=== PATIENT | female | born 1955 | race African-American/Black ===

== ENCOUNTER 2018-09-04 05:46 | Inpatient (IN) | payer MEDICAID ==
[~2018-09-04] VITALS: Ht 160 cm; Wt 79.8 kg
[2018-09-04] VITALS (35 sets, daily range): BP systolic 92–157; BP diastolic 57–84
[~2018-09-04 05:46] MED LIST: AMLO10TA80 PO; ASPI-1159 PO; BRIM5DRO EACHEYE; CHLO25TA2 PO; CYAN100069 PO; DORZ10DR9 BOTHEYE; ESOM40CA PO; GABA-290 PO; LATA2.5D2 BOTHEYE; LOSA25TA12 PO; MEGE40TA27 PO; RIVA20TA PO; SOTA80TA PO
[2018-09-04] MEDS ORDERED: LACTATED RINGERS 1,000 ML IV SCH (08:00)
[2018-09-04] MEDS ORDERED: AMLO5TAB88 PO (09:20)
[2018-09-04] MEDS ORDERED: GELATIN SPONGE,ABSORBABLE 12-7MM SPONGE ONE (09:30)
[2018-09-04] MEDS ORDERED: THROMBIN (BOVINE) 5000 UNITS/VIAL TOP ONE (09:30)
[2018-09-04] MEDS ORDERED: LIDOCAINE HCL/EPINEPHRINE 1%-EPI 1:100,000 20 ML VIAL ONE (09:31)
[2018-09-04] MEDS ORDERED: BACITRACIN 50,000 UNITS/VIAL ONE (09:31)
[2018-09-04] MEDS ORDERED: HYDR-4009 PO (09:52)
[2018-09-04] MEDS ORDERED: FENTANYL CITRATE/PF 50MCG/ML 5ML VIAL ONE (12:02)
[2018-09-04] MEDS ORDERED: ROCURONIUM BROMIDE 10MG/ML VIAL 5ML IV ONE (12:02)
[2018-09-04] MEDS ORDERED: MIDAZOLAM HCL 2 MG/2 ML VIAL ONE (12:02)
[2018-09-04] MEDS ORDERED: HYDROMORPHONE HCL/PF 2MG/ML (OR) ONE (12:02)
[2018-09-04] MEDS ORDERED: PROPOFOL 200MG/20ML VIAL IV ONE (12:02)
[2018-09-04] MEDS ORDERED: CLINDAMYCIN 900 MG in DEXTROSE 5% WATER 50 ML IV ONE (12:15)
[2018-09-04] MEDS ORDERED: NICARDIPINE 100 MG in SODIUM CHLORIDE 0.9% 60 ML IV PRN (12:30)
[2018-09-04] MEDS ORDERED: HYDROCODONE/APAP 7.5/325MG 1 TAB TABLET PO PRN (12:30)
[2018-09-04] MEDS ORDERED: PHENYLEPHRINE HCL 10 MG/ML 1ML (IV VIAL) IV ONE (12:33)
[2018-09-04] MEDS ORDERED: NITROPRUSSIDE 50 MG in SODIUM CHLORIDE 0.9% 250 ML IV PRN (12:45)
[2018-09-04] MEDS ORDERED: LIDOCAINE HCL/PF 1% 10 MG/ML 5ML VIAL ONE (13:26)
[2018-09-04] MEDS ORDERED: GLYCOPYRROLATE 0.2 MG/ML 2ML VIAL ONE ×2 (13:26→13:40)
[2018-09-04] MEDS ORDERED: ONDANSETRON HCL 4MG/2ML INJ IV PRN (14:00)
[2018-09-04] MEDS ORDERED: HYDROMORPHONE PCA 10MG/50ML IV PRN (14:45)
[2018-09-04] MEDS ORDERED: DIPHENHYDRAMINE INJ IV PRN (14:45)
[2018-09-04] MEDS ORDERED: NALOXONE INJ IV PRN (14:45)
[2018-09-04] MEDS ORDERED: ONDANSETRON INJ IV PRN (14:45)
[2018-09-04] MEDS: DEXT 5%/LACTATED RINGERS 1,000 ML IV SCH ×2 (14:59→22:26)
[2018-09-04] MEDS: DEXAMETHASONE 4MG/ML 1ML VIAL IV SCH (18:14)
[2018-09-04] MEDS ORDERED: BISACODYL 5MG TABLET PO PRN (19:15)
[2018-09-04] MEDS: CLINDAMYCIN 600 MG in DEXTROSE 5% WATER 50 ML IV SCH (22:27)
[2018-09-05] VITALS (26 sets, daily range): BP systolic 93–136; BP diastolic 53–94
[2018-09-05] MEDS: DEXAMETHASONE 4MG/ML 1ML VIAL IV SCH ×2 (00:17→05:12)
[2018-09-05] MEDS: IPRATROPIUM/ALBUTEROL 0.5-3(2.5)MG/3ML NEB INH PRN ×2 (00:20→09:09)
[2018-09-05] MEDS: CLINDAMYCIN 600 MG in DEXTROSE 5% WATER 50 ML IV SCH (05:12)
[2018-09-05] MEDS: DEXT 5%/LACTATED RINGERS 1,000 ML IV SCH (05:13)
[2018-09-05 05:33] LABS: BASOPHILS % 0.1 % (0.0-2.0); HEMOGLOBIN. 11.9 g/dL (12.0-16.0); LYMPHOCYTES % 9.9 % (20.0-50.0); MEAN CORPUSCULAR HEMOGLOBIN 29.5 pg (28.0-32.0); MEAN CORPUSCULAR VOLUME 89.1 fL (81.0-99.0); MONOCYTES % 1.5 % (2.0-8.0); NEUTROPHILS % 88.5 % (40.0-76.0); PLATELET 213 x1000/uL (130-400); RED BLOOD CELL COUNT 4.04 mill/uL (4.2-5.4); RED CELL DISTRIBUTION WIDTH 15.3 % (11.6-14.6)
[2018-09-05 05:40] LABS: CHLORIDE 102 mEq/L (98-107)
[2018-09-05 05:52] LABS: LDL CHOLESTEROL 86 mg/dL (5-100)
[2018-09-05 05:54] LABS: HDL CHOLESTEROL 49 mg/dL (40-59)
[2018-09-05] MEDS: ONDANSETRON HCL 4MG/2ML INJ IV PRN (10:38)
[2018-09-05] MEDS: DOCUSATE SODIUM 100MG CAPSULE PO SCH ×2 (10:38→18:09)
[2018-09-06] VITALS: BP 114/73
[2018-09-06 02:06] VITALS: BP 153/78
[2018-09-06 04:00] VITALS: BP 125/85
[2018-09-06 08:00] VITALS: BP 140/80
[2018-09-06] MEDS: DOCUSATE SODIUM 100MG CAPSULE PO SCH (09:12)
[2018-09-06] MEDS: ONDANSETRON HCL 4MG/2ML INJ IV PRN (10:23)
[2018-09-06 12:00] VITALS: BP 148/82
[2018-09-06 13:48] VITALS: BP 148/82
== END 2018-09-06 14:30 | disposition home or self-care (01) | DRG 321 ==
LOC: OR 05:46 → MICUNO 05:47 → 6EST 09-05 11:30
PROVIDERS: ADMIT Neurological Surgery; ATTEND Neurological Surgery
PROC: 0RG10A0 Fusion of Cervical Vertebral Joint with Interbody Fusion Device, Anterior Approach, Anterior Column, Open Approach (ICD-10-PCS; principal; 2018-09-04)
PROC: 0RB30ZZ Excision of Cervical Vertebral Disc, Open Approach (ICD-10-PCS; 2018-09-04)
DX: M47.12 Other spondylosis with myelopathy, cervical region (principal); G82.50 Quadriplegia, unspecified; M50.022 Cervical disc disorder at C5-C6 level with myelopathy; I10 Essential (primary) hypertension; I48.0 Paroxysmal atrial fibrillation; G95.20 Unspecified cord compression; M54.12 Radiculopathy, cervical region; M48.02 Spinal stenosis, cervical region; Z88.0 Allergy status to penicillin
CPT/HCPCS: 36415; 71045; 72040; 80061; 84443; 86850; 86900; 88304; 88311; 93970; 95925; 95926; 95928; 97116; 97163; 97166; 97535; C1713; J1100; J1170; J2250; J2370; J2405; J2704; J3010; J3490; J7060; J7121; J7620; L0172

== ENCOUNTER 2018-10-05 10:19 | Inpatient (IN) | payer MEDICAID ==
[~2018-10-05] VITALS: Ht 177.8 cm; Wt 70.3 kg
[~2018-10-05 10:19] MED LIST changes: -AMLO10TA80 PO; +AMLO5TAB88 PO; -ASPI-1159 PO; -BRIM5DRO EACHEYE; -DORZ10DR9 BOTHEYE; -GABA-290 PO; +HYDR-4009 PO; -MEGE40TA27 PO
[2018-10-05] MEDS ORDERED: ASPIRIN 81MG TABLET PO ONE (10:30)
[2018-10-05] MEDS ORDERED: DILTIAZEM HCL 5MG/ML 5ML VIAL IV ONE (10:30)
[2018-10-05 11:07] LABS: BASOPHILS % 1.1 % (0.0-2.0); EOSINOPHILS % 1.1 % (0.0-5.0); HEMATOCRIT. 40.1 % (36.0-48.0); HEMOGLOBIN. 14.1 g/dL (12.0-16.0); LYMPHOCYTES % 61.1 % (20.0-50.0); MEAN CORPUSCULAR HEMOGLOBIN 30.2 pg (28.0-32.0); MEAN CORPUSCULAR VOLUME 86.1 fL (81.0-99.0); MEAN PLATELET VOLUME 7.5 fl (7.4-10.4); MONOCYTES % 13.2 % (2.0-8.0); NEUTROPHILS % 23.5 % (40.0-76.0); PLATELET 198 x1000/uL (130-400); RED BLOOD CELL COUNT 4.66 mill/uL (4.2-5.4); RED CELL DISTRIBUTION WIDTH 13.9 % (11.6-14.6)
[2018-10-05 11:09] LABS: CHLORIDE 97 mEq/L (98-107)
[2018-10-05] MEDS ORDERED: POTASSIUM CHLORIDE 20MEQ TABLET SR PO NR ×2 (12:15→16:30)
[2018-10-05] MEDS ORDERED: KCL 20MEQ/100ML PREMIX 100 ML IV NR (12:30)
[2018-10-05] MEDS ORDERED: ACETAMINOPHEN 325MG TABLET PO PRN (13:00)
[2018-10-05 13:16] LABS: CLARITY URINE CLEAR (CLEAR); COLOR URINE YELLOW (YELLOW); KETONES URINE NEGATIVE (NEGATIVE); LEUKOCYTE ESTERASE URINE NEGATIVE (NEGATIVE); NITRITE URINE NEGATIVE (NEGATIVE); OCCULT BLOOD URINE 1+ (NEGATIVE); PROTEIN URINE NEGATIVE (NEGATIVE); SPECIFIC GRAVITY URINE 1.007 (1.005-1.030)
[2018-10-05 13:59] LABS: *AMPHETAMINES SCREEN URINE NEGATIVE (NEGATIVE)
[2018-10-05 14:00] LABS: *BARBITURATES SCREEN URINE NEGATIVE (NEGATIVE); *BENZODIAZEPINES SCREEN URINE NEGATIVE (NEGATIVE); *COCAINE SCREEN URINE NEGATIVE (NEGATIVE); METHADONE URINE SCREEN NEGATIVE (NEGATIVE); OPIATES URINE SCREEN NEGATIVE (NEGATIVE); PHENCYCLIDINE URINE SCREEN NEGATIVE (NEGATIVE)
[2018-10-05 14:01] LABS: CANNABINOID URINE SCREEN PRESUMTIVE POSITIVE (NEGATIVE)
[2018-10-05] MEDS ORDERED: ONDANSETRON HCL 4MG/2ML INJ IV PRN (16:30)
[2018-10-05] MEDS ORDERED: DILTIAZEM HCL 5MG/ML 5ML VIAL IV PRN (16:30)
[2018-10-05 16:48] VITALS: BP 109/79
[2018-10-05] MEDS ORDERED: PNEUMOCOCCAL 23-VAL P-SAC VAC 0.5 ML IM ONE ×2 (17:30→22:00)
[2018-10-05] MEDS: RIVAROXABAN 20 MG TABLET PO SCH (18:35)
[2018-10-05 20:00] VITALS: BP 112/80
[2018-10-06 00:02] VITALS: BP 100/60
[2018-10-06 04:00] VITALS: BP 100/62
[2018-10-06 06:47] LABS: BASOPHILS % 0.6 % (0.0-2.0); EOSINOPHILS % 6.7 % (0.0-5.0); HEMATOCRIT. 37.4 % (36.0-48.0); HEMOGLOBIN. 12.7 g/dL (12.0-16.0); MEAN CORPUSCULAR HEMOGLOBIN 29.6 pg (28.0-32.0); MEAN CORPUSCULAR VOLUME 86.9 fL (81.0-99.0); MEAN PLATELET VOLUME 7.9 fl (7.4-10.4); MONOCYTES % 14.3 % (2.0-8.0); NEUTROPHILS % 18.4 % (40.0-76.0); PLATELET 166 x1000/uL (130-400); RED CELL DISTRIBUTION WIDTH 14.1 % (11.6-14.6)
[2018-10-06 06:55] LABS: CHLORIDE 104 mEq/L (98-107)
[2018-10-06 07:56] VITALS: BP 106/77
[2018-10-06] MEDS ORDERED: POTASSIUM CHLORIDE 20MEQ TABLET SR PO SCH ×2 (09:15→15:15)
[2018-10-06] MEDS: DOCUSATE SODIUM 100MG CAPSULE PO SCH (09:54)
[2018-10-06] MEDS: HYDROCODONE/ACETAMINOPHEN 5/325MG TABLET PO PRN (09:54)
[2018-10-06 12:00] VITALS: BP 107/78
[2018-10-06] MEDS ORDERED: MORPHINE SULFATE 4 MG/ML CPJ (NOT FOR IM USE) IV PRN (15:00)
[2018-10-06 16:00] VITALS: BP 119/74
[2018-10-06] MEDS ORDERED: MAGNESIUM 2 G PREMIX 50 ML IV SCH (16:00)
[2018-10-06] MEDS: RIVAROXABAN 20 MG TABLET PO SCH (16:11)
[2018-10-06 20:00] VITALS: BP 102/74
[2018-10-06] MEDS: SOTALOL HCL 80MG TABLET PO SCH (20:22)
[2018-10-07] VITALS: BP 111/78
[2018-10-07 04:00] VITALS: BP 106/70
[2018-10-07 06:07] LABS: BASOPHILS % 1.3 % (0.0-2.0); EOSINOPHILS % 2.9 % (0.0-5.0); HEMATOCRIT. 37.8 % (36.0-48.0); HEMOGLOBIN. 12.7 g/dL (12.0-16.0); LYMPHOCYTES % 51.6 % (20.0-50.0); MEAN CORPUSCULAR HEMOGLOBIN 29.5 pg (28.0-32.0); MEAN CORPUSCULAR VOLUME 87.9 fL (81.0-99.0); MEAN PLATELET VOLUME 7.8 fl (7.4-10.4); MONOCYTES % 10.1 % (2.0-8.0); NEUTROPHILS % 34.1 % (40.0-76.0); PLATELET 161 x1000/uL (130-400)
[2018-10-07 07:27] LABS: CHLORIDE 102 mEq/L (98-107)
[2018-10-07 08:00] VITALS: BP 114/80
[2018-10-07] MEDS: DOCUSATE SODIUM 100MG CAPSULE PO SCH (08:55)
[2018-10-07] MEDS: HYDROCODONE/ACETAMINOPHEN 5/325MG TABLET PO PRN (08:55)
[2018-10-07] MEDS: SOTALOL HCL 80MG TABLET PO SCH (08:55)
[2018-10-07 12:00] VITALS: BP 111/74
[2018-10-07 15:38] VITALS: BP 111/74
[2018-10-07 16:00] VITALS: BP 112/80
== END 2018-10-07 17:15 | disposition home or self-care (01) | DRG 201 ==
LOC: ER 10:19 → EDBEDREQ 12:20 → 8WST 13:51 → ENRESERV 13:51
PROVIDERS: ADMIT Internal Medicine; ATTEND Internal Medicine
DX: I48.1 Persistent atrial fibrillation (principal); E87.1 Hypo-osmolality and hyponatremia; E87.6 Hypokalemia; F12.90 Cannabis use, unspecified, uncomplicated; I10 Essential (primary) hypertension; K21.9 Gastro-esophageal reflux disease without esophagitis; H40.9 Unspecified glaucoma; Z90.710 Acquired absence of both cervix and uterus; Z79.01 Long term (current) use of anticoagulants; Z79.899 Other long term (current) drug therapy; Z88.0 Allergy status to penicillin
CPT/HCPCS: 36415; 71045; 80048; 80061; 80305; 83036; 83735; 83880; 84443; 84484; 90732; 93005; 93306; 97162; 97166; 99285; J2270; J3475; J3480; J3490; J7050

== ENCOUNTER → 2019-06-10 | Day surgery (SDC) | payer MEDICAID ==
[~2019-06-10] MED LIST changes: +CHLO25TA2 MT; +DICL75TA5 MT; +FOLI-43 MT; -LOSA25TA12 PO; +LOSA25TA26 PO; +METH2.5T PO; +PRED5TAB MT
== END | disposition home or self-care (01) ==
LOC: CCL 08:48
PROVIDERS: ATTEND Internal Medicine Cardiovascular Disease
DX: I25.10 Atherosclerotic heart disease of native coronary artery without angina pectoris (principal); Z53.8 Procedure and treatment not carried out for other reasons; I48.91 Unspecified atrial fibrillation; R94.39 Abnormal result of other cardiovascular function study

== ENCOUNTER 2019-06-17 09:42 | Day surgery (SDC) | payer MEDICAID ==
[~2019-06-17] VITALS: Ht 165.1 cm; Wt 74.8 kg
[~2019-06-17 09:42] MED LIST changes: -CHLO25TA2 MT; -DICL75TA5 MT; -FOLI-43 MT; -METH2.5T PO; -PRED5TAB MT
[2019-06-17] MEDS ORDERED: NICARDIPINE 100MCG/ML 10ML VIAL (CATH LAB) IV ONE (10:14)
[2019-06-17] MEDS ORDERED: NITROGLYCERIN 50MCG/ML 10ML VIAL (CATH LAB) IV ONE (10:14)
[2019-06-17] MEDS ORDERED: HEPARIN SODIUM 1,000 UNIT/1ML VIAL IV ONE (10:14)
[2019-06-17] MEDS ORDERED: PRED5TAB MT (10:15)
[2019-06-17] MEDS ORDERED: CHLO25TA2 MT (10:15)
[2019-06-17] MEDS ORDERED: DICL75TA5 MT (10:15)
[2019-06-17] MEDS ORDERED: METH2.5T PO (10:15)
[2019-06-17] MEDS ORDERED: FOLI-43 MT (10:15)
[2019-06-17] MEDS ORDERED: MIDAZOLAM HCL 2 MG/2 ML VIAL ONE (10:32)
[2019-06-17] MEDS ORDERED: FENTANYL CITRATE/PF 50MCG/ML 2ML VIAL ONE (10:32)
[2019-06-17] MEDS ORDERED: IODIXANOL 320MG/ML 100 ML BOTTLE IV ONE (10:32)
[2019-06-17] MEDS ORDERED: LIDOCAINE HCL 1% 20ML VIAL (Pyxis) INJ ONE (10:33)
[2019-06-17 11:14] LABS: HEMATOCRIT 37.9 % (36.0-48.0); HEMOGLOBIN 12.7 g/dL (12.0-16.0); MEAN CORPUSCULAR HEMOGLOBIN 30.6 pg (28.0-32.0); PLATELET 237 x1000/uL (130-400); RED BLOOD CELL COUNT 4.16 mill/uL (4.2-5.4); RED CELL DISTRIBUTION WIDTH 15.8 % (11.6-14.6)
[2019-06-17 11:23] LABS: CHLORIDE 102 mEq/L (98-107)
[2019-06-17 11:29] LABS: INR 1.1; PARTIAL THROMBOPLASTIN TIME 28.2 sec (23.4-31.0); PROTHROMBIN TIME 11.2 sec (9.6-11.0)
[2019-06-17] MEDS ORDERED: ATORVASTATIN CALCIUM 20MG TABLET PO NR (12:00)
[2019-06-17] MEDS ORDERED: ONDANSETRON HCL 4MG/2ML INJ IV PRN (12:00)
[2019-06-17] MEDS ORDERED: POTASSIUM CHLORIDE 20MEQ TABLET SR PO NR (12:00)
[2019-06-17] MEDS ORDERED: MAGNESIUM OXIDE 400MG TABLET PO SCH (12:00)
[2019-06-17] MEDS ORDERED: ACETAMINOPHEN 325MG TABLET PO PRN (15:59)
[2019-06-17] MEDS ORDERED: MORPHINE SULFATE 2 MG/ML CPJ (NOT FOR IM USE) IV PRN (16:00)
== END 2019-06-17 15:30 | disposition home or self-care (01) ==
LOC: CCL 09:42
PROVIDERS: ATTEND Internal Medicine Cardiovascular Disease
DX: R94.39 Abnormal result of other cardiovascular function study (principal); I25.10 Atherosclerotic heart disease of native coronary artery without angina pectoris; I48.91 Unspecified atrial fibrillation; Z79.899 Other long term (current) drug therapy; Z88.0 Allergy status to penicillin; Z87.891 Personal history of nicotine dependence; Z82.49 Family history of ischemic heart disease and other diseases of the circulatory system
CPT/HCPCS: 36415; 80048; 85027; 85610; 85730; 93005; 93458; 99152; C1769; C1887; J1644; J2250; J3010; J3490; Q9967; G0500

== ENCOUNTER 2019-09-23 08:57 | Inpatient (IN) | payer MEDICAID ==
[~2019-09-23] VITALS: Ht 165.1 cm; Wt 71.7 kg
[~2019-09-23 08:57] MED LIST changes: +CHLO25TA2 MT; +DICL75TA5 MT; +FOLI-43 MT; +METH2.5T PO; +PRED5TAB MT
[2019-09-23] MEDS ORDERED: MELO-106 MT (10:07)
[2019-09-23] MEDS ORDERED: VALA500T55 PO (10:07)
[2019-09-23] MEDS ORDERED: B12/1TAB MT (10:07)
[2019-09-23] MEDS ORDERED: MEGE40TA8 MT (10:07)
[2019-09-23 10:22] LABS: HEMATOCRIT 37.9 % (36.0-48.0); HEMOGLOBIN 12.5 g/dL (12.0-16.0); MEAN CORPUSCULAR HEMOGLOBIN 30.3 pg (28.0-32.0); MEAN CORPUSCULAR VOLUME 91.9 fL (81.0-99.0); PLATELET 219 x1000/uL (130-400); RED BLOOD CELL COUNT 4.12 mill/uL (4.2-5.4)
[2019-09-23 10:29] LABS: CHLORIDE 109 mEq/L (98-107)
[2019-09-23 10:30] LABS: INR 1.1; PROTHROMBIN TIME 11.2 sec (9.6-11.0)
[2019-09-23] MEDS ORDERED: HEPARIN 1,000 UNITS PREMIX 1,500 ML IV ONE (12:09)
[2019-09-23] MEDS ORDERED: LIDOCAINE HCL 1% 20ML VIAL (Pyxis) INJ ONE ×2 (12:09→13:49)
[2019-09-23] MEDS ORDERED: FENTANYL CITRATE/PF 50MCG/ML 2ML VIAL ONE (13:45)
[2019-09-23] MEDS ORDERED: MIDAZOLAM HCL 2 MG/2 ML VIAL ONE (13:46)
[2019-09-23] MEDS ORDERED: SODIUM CHLORIDE 0.9% 10ML VIAL ONE ×2 (13:50→14:28)
[2019-09-23] MEDS ORDERED: SUCCINYLCHOLINE CHLORIDE 200MG/10ML IV ONE (13:50)
[2019-09-23] MEDS ORDERED: ETOMIDATE 2MG/ML 10ML VIAL IV ONE (13:50)
[2019-09-23] MEDS ORDERED: EPHEDRINE SULFATE 50MG/ML VIAL ONE ×2 (13:50→15:00)
[2019-09-23] MEDS ORDERED: PHENYLEPHRINE HCL 10 MG/ML 1ML (IV VIAL) IV ONE (13:50)
[2019-09-23] MEDS ORDERED: ROCURONIUM BROMIDE 10MG/ML VIAL 5ML IV ONE (14:00)
[2019-09-23] MEDS ORDERED: GLYCOPYRROLATE 0.2 MG/ML 2ML VIAL ONE (14:01)
[2019-09-23] MEDS ORDERED: DEXAMETHASONE 4MG/ML 1ML VIAL ONE (14:34)
[2019-09-23] MEDS ORDERED: ONDANSETRON HCL 4MG/2ML INJ ONE (17:49)
[2019-09-23] MEDS ORDERED: IBUTILIDE FUMARATE 0.1MG/ML 10ML VIAL IV ONE (17:54)
[2019-09-23] MEDS ORDERED: AMIODARONE HCL 150 MG in DEXT 5% WATER 100 ML IV NR ×2 (18:15→19:00)
[2019-09-23] MEDS ORDERED: HYDROMORPHONE HCL/PF 2MG/ML CPJ IV PRN (20:15)
[2019-09-23 22:00] VITALS: BP 138/87
[2019-09-23] MEDS ORDERED: AMIODARONE HCL 900 MG in DEXT 5% WATER 482 ML IV SCH (23:30)
[2019-09-24] VITALS (13 sets, daily range): BP systolic 109–136; BP diastolic 74–98
[2019-09-24] MEDS ORDERED: RIVAROXABAN 10 MG TABLET PO SCH
[2019-09-24] MEDS ORDERED: ACETAMINOPHEN 325MG TABLET PO PRN (00:02)
[2019-09-24] MEDS ORDERED: ATROPINE SULFATE 1MG/10ML SYR IV PRN (00:03)
[2019-09-24 06:45] LABS: BASOPHILS % 0.3 % (0.0-2.0); HEMATOCRIT. 34.5 % (36.0-48.0); HEMOGLOBIN. 11.7 g/dL (12.0-16.0); LYMPHOCYTES % 20.3 % (20.0-50.0); MEAN CORPUSCULAR VOLUME 91.2 fL (81.0-99.0); MEAN PLATELET VOLUME 7.8 fl (7.4-10.4); MONOCYTES % 4.9 % (2.0-8.0); NEUTROPHILS % 74.5 % (40.0-76.0); PLATELET 196 x1000/uL (130-400); RED BLOOD CELL COUNT 3.79 mill/uL (4.2-5.4); RED CELL DISTRIBUTION WIDTH 14.1 % (11.6-14.6)
[2019-09-24 06:59] LABS: CHLORIDE 109 mEq/L (98-107)
[2019-09-24] MEDS ORDERED: AMIODARONE HCL 900 MG in DEXT 5% WATER 482 ML IV SCH (09:00)
[2019-09-24] MEDS: METOPROLOL TARTRATE 25MG TABLET PO SCH ×2 (09:46→21:24)
[2019-09-24] MEDS ORDERED: PNEUMOCOCCAL 23-VAL P-SAC VAC 0.5 ML IM ONE (10:00)
[2019-09-24] MEDS ORDERED: ONDANSETRON HCL 4MG/2ML INJ IV PRN (13:15)
[2019-09-24] MEDS: PANTOPRAZOLE 40MG DR TABLET PO SCH ×2 (13:41→21:24)
[2019-09-24] MEDS: RIVAROXABAN 15 MG TABLET PO SCH (17:45)
[2019-09-24] MEDS: MORPHINE SULFATE 2 MG/ML CPJ (NOT FOR IM USE) IV PRN (21:23)
[2019-09-25] VITALS (13 sets, daily range): BP systolic 119–151; BP diastolic 76–98
[2019-09-25 07:21] LABS: BASOPHILS % 0.3 % (0.0-2.0); EOSINOPHILS % 0.8 % (0.0-5.0); HEMATOCRIT. 35.9 % (36.0-48.0); HEMOGLOBIN. 11.8 g/dL (12.0-16.0); LYMPHOCYTES % 24.8 % (20.0-50.0); MEAN CORPUSCULAR VOLUME 90.8 fL (81.0-99.0); MEAN PLATELET VOLUME 7.4 fl (7.4-10.4); MONOCYTES % 9.5 % (2.0-8.0); NEUTROPHILS % 64.6 % (40.0-76.0); PLATELET 183 x1000/uL (130-400); RED BLOOD CELL COUNT 3.95 mill/uL (4.2-5.4); RED CELL DISTRIBUTION WIDTH 14.3 % (11.6-14.6)
[2019-09-25] MEDS ORDERED: PANTOPRAZOLE 40MG DR TABLET PO SCH (09:00)
[2019-09-25] MEDS: PREDNISONE 5MG TABLET PO SCH (09:24)
[2019-09-25] MEDS: LOSARTAN POTASSIUM 50 MG TABLET PO SCH ×2 (09:24→22:58)
[2019-09-25] MEDS: PANTOPRAZOLE 40MG DR TABLET PO SCH ×2 (09:24→22:58)
[2019-09-25] MEDS: AMLODIPINE 5MG TABLET PO SCH ×2 (09:25→22:58)
[2019-09-25] MEDS: METOPROLOL TARTRATE 25MG TABLET PO SCH ×2 (09:25→22:57)
[2019-09-25] MEDS: AMIODARONE HCL 200 MG TABLET PO SCH (12:45)
[2019-09-25] MEDS ORDERED: MAGNESIUM/ALUMINUM HYDROXIDE/SIMETHICONE 30ML UDC PO PRN (15:15)
[2019-09-25] MEDS: RIVAROXABAN 15 MG TABLET PO SCH (17:37)
[2019-09-25] MEDS: MORPHINE SULFATE 2 MG/ML CPJ (NOT FOR IM USE) IV PRN (17:41)
[2019-09-25] MEDS ORDERED: IBUPROFEN 600MG TABLET PO ONE (19:45)
[2019-09-25] MEDS ORDERED: IBUPROFEN 600MG TABLET PO SCH (19:45)
[2019-09-25] MEDS ORDERED: FAMOTIDINE 20MG TABLET PO SCH (21:00)
[2019-09-26] VITALS (10 sets, daily range): BP systolic 114–130; BP diastolic 72–88
[2019-09-26] MEDS: PANTOPRAZOLE 40MG DR TABLET PO SCH ×2 (06:10→21:20)
[2019-09-26] MEDS ORDERED: IBUPROFEN 400MG TABLET PO ONE (08:00)
[2019-09-26] MEDS ORDERED: IBUPROFEN 400MG TABLET PO SCH (09:00)
[2019-09-26] MEDS: LOSARTAN POTASSIUM 50 MG TABLET PO SCH ×2 (09:36→21:00)
[2019-09-26] MEDS: PREDNISONE 5MG TABLET PO SCH (09:36)
[2019-09-26] MEDS: AMIODARONE HCL 200 MG TABLET PO SCH (09:36)
[2019-09-26] MEDS: METOPROLOL TARTRATE 25MG TABLET PO SCH ×2 (09:37→21:00)
[2019-09-26] MEDS ORDERED: IOHEXOL-300 100 ML BOTTLE ONE (10:17)
[2019-09-26] MEDS: AMLODIPINE 5MG TABLET PO SCH ×2 (12:50→21:00)
[2019-09-26] MEDS ORDERED: BACTERIOSTATIC SODIUM CHLORIDE 0.9% 30ML VIAL IJ ONE (13:56)
[2019-09-26] MEDS ORDERED: MIDAZOLAM HCL 5 MG/5 ML VIAL IV PRN (15:31)
[2019-09-26] MEDS ORDERED: MIDAZOLAM HCL 5 MG/5 ML VIAL ONE ×2 (15:31→15:39)
[2019-09-26] MEDS ORDERED: FENTANYL CITRATE/PF 50MCG/ML 2ML VIAL IV PRN (15:32)
[2019-09-26] MEDS ORDERED: FENTANYL CITRATE/PF 50MCG/ML 2ML VIAL ONE (15:32)
[2019-09-26] MEDS: RIVAROXABAN 15 MG TABLET PO SCH (17:23)
[2019-09-27] VITALS (7 sets, daily range): BP systolic 121–149; BP diastolic 79–89
[2019-09-27] MEDS: PANTOPRAZOLE 40MG DR TABLET PO SCH (06:02)
[2019-09-27] MEDS: PREDNISONE 5MG TABLET PO SCH (08:24)
[2019-09-27] MEDS: METOPROLOL TARTRATE 25MG TABLET PO SCH (08:24)
[2019-09-27] MEDS: AMLODIPINE 5MG TABLET PO SCH (08:24)
[2019-09-27] MEDS: LOSARTAN POTASSIUM 50 MG TABLET PO SCH (08:24)
[2019-09-27] MEDS: AMIODARONE HCL 200 MG TABLET PO SCH (08:24)
== END 2019-09-27 13:13 | disposition home or self-care (01) | DRG 192 ==
LOC: CCL 08:57 → 3WST 23:10
PROVIDERS: ADMIT Specialist; ATTEND Specialist
PROC: 4A023FZ Measurement of Cardiac Rhythm, Percutaneous Approach (ICD-10-PCS; 2019-09-23)
PROC: 5A2204Z Restoration of Cardiac Rhythm, Single (ICD-10-PCS; 2019-09-23)
PROC: 4A0234Z Measurement of Cardiac Electrical Activity, Percutaneous Approach (ICD-10-PCS; 2019-09-23)
PROC: 02573ZK Destruction of Left Atrial Appendage, Percutaneous Approach (ICD-10-PCS; 2019-09-23)
PROC: 0DJ08ZZ Inspection of Upper Intestinal Tract, Via Natural or Artificial Opening Endoscopic (ICD-10-PCS; principal; 2019-09-26)
DX: I48.0 Paroxysmal atrial fibrillation (principal); F12.90 Cannabis use, unspecified, uncomplicated; I10 Essential (primary) hypertension; R07.2 Precordial pain; K21.9 Gastro-esophageal reflux disease without esophagitis; K29.70 Gastritis, unspecified, without bleeding; L53.8 Other specified erythematous conditions; K44.9 Diaphragmatic hernia without obstruction or gangrene; Z79.01 Long term (current) use of anticoagulants; Z79.899 Other long term (current) drug therapy; Z88.0 Allergy status to penicillin
CPT/HCPCS: 36415; 71270; 80048; 84484; 85025; 85027; 85347; 90732; 93005; 93306; 93613; 93620; 93656; 93657; C1730; C1731; C1732; C1759; C1893; J0282; J0330; J1100; J1170; J1644; J1742; J2250; J2270; J2370; J2405; J3010; J3490; J7040; J7060; J7512; Q9967

== ENCOUNTER 2021-03-17 10:41 | Emergency (ER) | payer BC, MEDICAID ==
[~2021-03-17] VITALS: Ht 167.6 cm; Wt 82.0 kg
[~2021-03-17 10:41] MED LIST changes: +AMI2 PO; +AMLO10TA80 PO; -AMLO5TAB88 PO; +ATOR20TA65 MT; -CHLO25TA2 PO; -ESOM40CA PO; +LATA2.5D14 BOTHEYE; -LATA2.5D2 BOTHEYE; +MECL-159 MT; +MELO-106 MT; -SOTA80TA PO; +VALA500T55 PO
[2021-03-17] MEDS ORDERED: ACET-2708 MT (13:25)
[2021-03-17 13:37] VITALS: BP 148/70
== END 2021-03-17 13:37 | disposition home or self-care (01) ==
LOC: ER 10:44
DX: M79.661 Pain in right lower leg (principal); R60.0 Localized edema; I48.91 Unspecified atrial fibrillation; K21.9 Gastro-esophageal reflux disease without esophagitis; H40.9 Unspecified glaucoma; I10 Essential (primary) hypertension; Z88.0 Allergy status to penicillin; Z90.710 Acquired absence of both cervix and uterus; Z98.890 Other specified postprocedural states
CPT/HCPCS: 93970; 99284

== ENCOUNTER 2022-12-11 22:00 | Inpatient (IN) | payer BC, MEDICAID ==
[~2022-12-11] VITALS: Ht 167.6 cm; Wt 82.6 kg
[~2022-12-11 22:00] MED LIST changes: +ACET-2708 MT
[2022-12-12] MEDS ORDERED: MORPHINE SULFATE 4 MG/ML CPJ (NOT FOR IM USE) IV ONE
[2022-12-12 00:04] LABS: BASOPHILS % 0.6 % (0.0-2.0); EOSINOPHILS % 1.9 % (0.0-5.0); HEMATOCRIT. 38.3 % (36.0-48.0); HEMOGLOBIN. 12.8 g/dL (12.0-16.0); LYMPHOCYTES % 47.8 % (20.0-50.0); MEAN CORPUSCULAR HEMOGLOBIN 29.7 pg (28.0-32.0); MEAN CORPUSCULAR VOLUME 88.6 fL (81.0-99.0); MEAN PLATELET VOLUME 7.2 fl (7.4-10.4); MONOCYTES % 7.3 % (2.0-8.0); NEUTROPHILS % 42.4 % (40.0-76.0); PLATELET 251 x1000/uL (130-400); RED BLOOD CELL COUNT 4.33 mill/uL (4.2-5.4); RED CELL DISTRIBUTION WIDTH 14.8 % (11.6-14.6)
[2022-12-12 00:15] LABS: D-DIMER 0.19 mg/L FEU (<0.50); INR 1.1; PARTIAL THROMBOPLASTIN TIME 28.6 sec (23.4-31.0); PROTHROMBIN TIME 11.4 sec (9.6-11.0)
[2022-12-12 01:05] LABS: CHLORIDE 109 mEq/L (98-107)
[2022-12-12 06:10] VITALS: BP 157/80
[2022-12-12] MEDS ORDERED: ACETAMINOPHEN 325MG TABLET PO PRN (07:45)
[2022-12-12] MEDS ORDERED: DOCUSATE SODIUM 100MG CAPSULE PO PRN (07:45)
[2022-12-12] MEDS ORDERED: CLONIDINE 0.1MG TABLET PO PRN (07:45)
[2022-12-12] MEDS ORDERED: LORAZEPAM 0.5MG TABLET PO PRN (07:45)
[2022-12-12] MEDS ORDERED: ONDANSETRON HCL 4MG/2ML INJ IV PRN (07:45)
[2022-12-12] MEDS ORDERED: IPRATROPIUM/ALBUTEROL 0.5-3(2.5)MG/3ML NEB HHN PRN (07:45)
[2022-12-12 08:00] VITALS: BP 135/78
[2022-12-12] MEDS ORDERED: NALOXONE HCL 0.4MG/ML VIAL IV PRN (08:00)
[2022-12-12] MEDS: HYDROCODONE/ACETAMINOPHEN 5/325MG TABLET PO PRN ×2 (08:47→14:32)
[2022-12-12 12:00] VITALS: BP 133/79
[2022-12-12] MEDS: AMLODIPINE 10MG TABLET PO SCH (12:21)
[2022-12-12] MEDS ORDERED: PREDNISONE 5MG TABLET PO SCH (13:00)
[2022-12-12] MEDS ORDERED: OXYC10TA48 PO (13:12)
[2022-12-12] MEDS ORDERED: AMI2 PO (13:13)
[2022-12-12] MEDS ORDERED: ROSU20TA2 PO (13:13)
[2022-12-12] MEDS ORDERED: VALA500T55 PO (13:29)
[2022-12-12] MEDS ORDERED: EMTR1TAB11 PO (13:30)
[2022-12-12] MEDS: LOSARTAN POTASSIUM 25 MG TABLET PO SCH (14:32)
[2022-12-12] MEDS ORDERED: RIVA10TA MT (15:34)
[2022-12-12] MEDS ORDERED: ATOR10TA69 MT (15:34)
[2022-12-12] MEDS ORDERED: AMIO100T4 MT (15:34)
[2022-12-12] MEDS ORDERED: AMLO2.5T45 MT (15:34)
[2022-12-12 16:00] VITALS: BP 116/71
[2022-12-12] MEDS: RIVAROXABAN 20 MG TABLET PO SCH (17:34)
[2022-12-12] MEDS: ISOSORBIDE DINITRATE 20MG TABLET PO SCH (17:35)
[2022-12-12] MEDS: ACETAMINOPHEN 325MG TABLET PO PRN (17:36)
[2022-12-12 20:00] VITALS: BP 97/65
[2022-12-12] MEDS: LATANOPROST 0.005% OPHTH DROPS 2.5ML BOTHEYE SCH (21:24)
[2022-12-12] MEDS: ATORVASTATIN CALCIUM 20MG TABLET PO SCH (21:24)
[2022-12-12 22:09] LABS: *AMPHETAMINES SCREEN URINE NEGATIVE (NEGATIVE); *BARBITURATES SCREEN URINE NEGATIVE (NEGATIVE); *BENZODIAZEPINES SCREEN URINE NEGATIVE (NEGATIVE); *COCAINE SCREEN URINE NEGATIVE (NEGATIVE); CANNABINOID URINE SCREEN PRESUMTIVE POSITIVE (NEGATIVE); METHADONE URINE SCREEN NEGATIVE (NEGATIVE); OPIATES URINE SCREEN PRESUMTIVE POSITIVE (NEGATIVE); PHENCYCLIDINE URINE SCREEN NEGATIVE (NEGATIVE)
[2022-12-13] VITALS: BP 104/73
[2022-12-13 04:00] VITALS: BP 126/88
[2022-12-13 08:00] VITALS: BP 127/91
[2022-12-13] MEDS: LOSARTAN POTASSIUM 25 MG TABLET PO SCH (08:10)
[2022-12-13] MEDS: AMLODIPINE 10MG TABLET PO SCH (08:11)
[2022-12-13] MEDS: CHLORTHALIDONE 25MG TABLET PO SCH (08:11)
[2022-12-13] MEDS: ISOSORBIDE DINITRATE 20MG TABLET PO SCH ×2 (08:12→17:54)
[2022-12-13] MEDS: FOLIC ACID 1MG TABLET PO SCH (08:12)
[2022-12-13] MEDS: ACETAMINOPHEN 325MG TABLET PO PRN ×2 (08:13→17:51)
[2022-12-13] MEDS ORDERED: AMIODARONE HCL 200 MG TABLET PO SCH (09:00)
[2022-12-13] MEDS ORDERED: METHOTREXATE SODIUM 2 . 5MG TABLET PO SCH (09:00)
[2022-12-13 12:00] VITALS: BP 108/74
[2022-12-13 16:00] VITALS: BP 125/84
[2022-12-13] MEDS: RIVAROXABAN 20 MG TABLET PO SCH (17:50)
[2022-12-13 20:00] VITALS: BP 112/78
[2022-12-13] MEDS: ATORVASTATIN CALCIUM 20MG TABLET PO SCH (20:57)
[2022-12-13] MEDS: LATANOPROST 0.005% OPHTH DROPS 2.5ML BOTHEYE SCH (20:57)
[2022-12-14] VITALS: BP 117/83
[2022-12-14 04:00] VITALS: BP 132/75
[2022-12-14 07:37] VITALS: BP 111/82
[2022-12-14 07:59] LABS: BASOPHILS % 0.6 % (0.0-2.0); EOSINOPHILS % 2.7 % (0.0-5.0); HEMATOCRIT. 42.9 % (36.0-48.0); HEMOGLOBIN. 14.6 g/dL (12.0-16.0); LYMPHOCYTES % 39.2 % (20.0-50.0); MEAN CORPUSCULAR HEMOGLOBIN 29.8 pg (28.0-32.0); MEAN CORPUSCULAR VOLUME 87.7 fL (81.0-99.0); MEAN PLATELET VOLUME 6.8 fl (7.4-10.4); MONOCYTES % 8.7 % (2.0-8.0); NEUTROPHILS % 48.8 % (40.0-76.0); PLATELET 254 x1000/uL (130-400); RED BLOOD CELL COUNT 4.89 mill/uL (4.2-5.4); RED CELL DISTRIBUTION WIDTH 14.5 % (11.6-14.6)
[2022-12-14] MEDS: LOSARTAN POTASSIUM 25 MG TABLET PO SCH (08:28)
[2022-12-14] MEDS: FOLIC ACID 1MG TABLET PO SCH (08:29)
[2022-12-14] MEDS: AMLODIPINE 10MG TABLET PO SCH (08:29)
[2022-12-14] MEDS: ISOSORBIDE DINITRATE 20MG TABLET PO SCH (08:29)
[2022-12-14] MEDS: CHLORTHALIDONE 25MG TABLET PO SCH (08:29)
[2022-12-14 09:03] LABS: CHLORIDE 107 mEq/L (98-107)
[2022-12-14 11:47] VITALS: BP 107/80
[2022-12-14] MEDS ORDERED: ISOS20TA8 PO (12:55)
[2022-12-14] MEDS ORDERED: AMI2 PO (12:55)
[2022-12-14 15:25] VITALS: BP 116/70
[2022-12-14 15:56] VITALS: BP 112/69
== END 2022-12-14 17:12 | disposition home or self-care (01) | DRG 206 ==
LOC: ER 22:00 → MICUSO 12-12 02:07 → 7WST 12-12 06:33
PROVIDERS: ADMIT Internal Medicine; ATTEND Internal Medicine
DX: M94.0 Chondrocostal junction syndrome [Tietze] (principal); I48.20 Chronic atrial fibrillation, unspecified; I10 Essential (primary) hypertension; E78.5 Hyperlipidemia, unspecified; K21.9 Gastro-esophageal reflux disease without esophagitis; H40.9 Unspecified glaucoma; Z20.822 Contact with and (suspected) exposure to COVID-19; Z79.01 Long term (current) use of anticoagulants; Z87.891 Personal history of nicotine dependence; Z82.3 Family history of stroke; Z82.49 Family history of ischemic heart disease and other diseases of the circulatory system; Z90.710 Acquired absence of both cervix and uterus; Z88.0 Allergy status to penicillin
CPT/HCPCS: 36415; 71045; 80048; 80053; 80305; 83880; 84484; 85025; 85379; 87426; 93005; 93306; 99285; C9803; J2270

== ENCOUNTER 2023-03-18 14:04 | Emergency (ER) | payer BC, MEDICAID ==
[~2023-03-18] VITALS: Ht 167.6 cm; Wt 82.0 kg
[~2023-03-18 14:04] MED LIST changes: +ATOR10TA69 MT; -ATOR20TA65 MT; +EMTR1TAB11 PO; +ISOS20TA8 PO; -METH2.5T PO; +OXYC10TA48 PO; -PRED5TAB MT
[2023-03-18 14:14] VITALS: TEMP 98.9; O2SAT 99
[2023-03-18] MEDS ORDERED: TRAMADOL 50MG TABLET PO ONE (15:30)
[2023-03-18 15:43] LABS: BASOPHILS % 0.8 % (0.0-2.0); HEMATOCRIT. 42.8 % (36.0-48.0); HEMOGLOBIN. 14.5 g/dL (12.0-16.0); LYMPHOCYTES % 29.3 % (20.0-50.0); MEAN CORPUSCULAR HEMOGLOBIN 29.2 pg (28.0-32.0); MEAN CORPUSCULAR VOLUME 86.3 fL (81.0-99.0); MEAN PLATELET VOLUME 6.9 fl (7.4-10.4); NEUTROPHILS % 55.9 % (40.0-76.0); PLATELET 199 x1000/uL (130-400); RED BLOOD CELL COUNT 4.95 mill/uL (4.2-5.4); RED CELL DISTRIBUTION WIDTH 14.9 % (11.6-14.6)
[2023-03-18 15:54] LABS: INR 1.2; PARTIAL THROMBOPLASTIN TIME 37.1 sec (23.4-31.0)
[2023-03-18 16:30] VITALS: BP 124/83; PULSE 94; RESP 16
[2023-03-18] MEDS ORDERED: TRAMADOL 50MG TABLET PO NR (16:30)
[2023-03-18] MEDS ORDERED: TRAM50TA3 MT (17:20)
== END 2023-03-18 18:13 | disposition home or self-care (01) ==
LOC: ER 14:30
DX: M25.551 Pain in right hip (principal); M25.511 Pain in right shoulder; M25.512 Pain in left shoulder; I48.91 Unspecified atrial fibrillation; K21.9 Gastro-esophageal reflux disease without esophagitis; I10 Essential (primary) hypertension; Z90.710 Acquired absence of both cervix and uterus; Z79.899 Other long term (current) drug therapy; W18.39XA Other fall on same level, initial encounter; Y93.89 Activity, other specified; Y92.89 Other specified places as the place of occurrence of the external cause; Y99.8 Other external cause status
CPT/HCPCS: 36415; 72131; 72192; 73030; 80048; 85025; 99284